=== PATIENT | female | born 1985 | race Asian ===

== ENCOUNTER 2016-09-20 08:20 | Day surgery (SDC) | payer MEDICAID ==
[2016-09-20] MEDS ORDERED: LR 1,000 ML IV ONE (08:32)
[2016-09-20] MEDS ORDERED: LIDOCAINE 1% 5 ML SDV ID PRN (08:32)
[2016-09-20] MEDS ORDERED: PROPOFOL/EMULSION 500 MG/50 ML BOTTLE IV ONE (09:34)
[2016-09-20] MEDS ORDERED: PROPOFOL 200 MG/20 ML VIAL ONE (09:51)
--- NOTE | 2016-09-20 11:28 | GPN ---
[f rep st] PROCEDURE NOTE PREPROCEDURE DIAGNOSIS: Nausea, epigastric abdominal pain, bloating, diarrhea, constipation. POSTPROCEDURE DIAGNOSIS: Mild antral gastritis. Otherwise normal upper and lower endoscopic exam. PROCEDURES: 1. Esophagogastroduodenoscopy with biopsies. 2. Colonoscopy with biopsies. MEDICATIONS: Monitored anesthesia care. INDICATIONS: The patient is a 30-year-old female who has a history of epigastric abdominal pain, bl oating, diarrhea, nausea, constipation who is followed in our clinic. She initially responded to a trial of Xifaxan; however, her symptoms recurred. She is currently being treated with extended rele ase antispasmodics in the form of hyoscyamine daily, Benefiber, and FODMAP diet. She is here today for upper and lower endoscopy for further evaluation. The risks and benefits of the proc edure were discussed with the patient and consent obtained. Risks include, but not limited to, blee ding, perforation, . The patient is ASA class 1. PROCEDURE: The end-viewing endoscope was inserted into the esophagus, into stomach and second porti on of the duodenum. The esophagus appears normal. The Z-line was normal and located at 40 cm from incisors. There was no evidence of esophagitis, Loza's, or varices. The stomach shows a mild an tral gastritis. There was a small 2 mm erosion along the greater curvature. Biopsies were taken to evaluate for Helicobacter pylori using cold biopsy forceps and sent to Pathology. The duodenum and the second portion was normal. Biopsies were taken to evaluate for celiac disease using cold biops y forceps. The patient was then repositioned, and the adult colonoscope was advanced into the terminal ileum. The terminal ileum appears normal. The appendiceal orifice, cecum, ascending colon, hepatic flexure , transverse colon, splenic flexure, descending colon, sigmoid colon, and rectum appeared normal. T he retroflexed views in the rectum were normal. Random biopsies were taken throughout the colon to evaluate for microscopic colitis given her history of diarrhea. IMPRESSION: 1. Mild antral gastritis, status post biopsies. 2. Normal duodenum, status post biopsies. 3. Normal terminal ileum. 4. Normal colonoscopy, status post random biopsies for microscopic colitis. RECOMMENDATIONS: 1. Advance diet as tolerated. 2. Discharged to home with escort. 3. Follow up final pathology results, which are available within 10 days. 4. No recall for colonoscopy. Repeat at age 51. 5. Follow up in our GI clinic as previously scheduled with our PA, Xochilt Wong. 6. Trial of omeprazole 20 mg orally daily, 30 minutes before a meal for 8 weeks. 7. Avoid nonsteroidal anti-inflammatory medications. Thank you for allowing me to participate in the care of your patient. Please do not hesitate to thania mercer with questions. /[id number]/MODL
== END 2016-09-20 11:13 | disposition home or self-care (01) ==
LOC: FSGY 08:20
PROVIDERS: ATTEND Internal Medicine Gastroenterology
PROC: 0DB98ZX Excision of Duodenum, Via Natural or Artificial Opening Endoscopic, Diagnostic (ICD-10-PCS; principal; 2016-09-20 09:45)
PROC: 0DBE8ZX Excision of Large Intestine, Via Natural or Artificial Opening Endoscopic, Diagnostic (ICD-10-PCS; principal; 2016-09-20 09:45)
PROC: 0DB68ZX Excision of Stomach, Via Natural or Artificial Opening Endoscopic, Diagnostic (ICD-10-PCS; principal; 2016-09-20 09:45)
DX: R11.0 Nausea (principal); R10.13 Epigastric pain; K29.70 Gastritis, unspecified, without bleeding
CPT/HCPCS: J2704